=== PATIENT | male | born 1975 | race Two or more races ===

== ENCOUNTER 2023-10-29 18:08 | Emergency (ER) | payer SELFPAY ==
[~2023-10-29] VITALS: Ht 167.6 cm; Wt 62.8 kg
[~2023-10-29 18:08] MED LIST: CYCLOBENZAPRINE10 MG PO; IBUPROFEN600 MG PO; LIDODERM700 MG TOP
[2023-10-29] MEDS ORDERED: LACTATED RINGER'S 1,000 ML IV ONE ×2 (20:00→21:30)
[2023-10-29 20:10] LABS: BASOPHILS 0.3 % (0-2); EOSINOPHILS 1.2 % (0-6); HEMATOCRIT 41.9 % (35.0-50.0); HEMOGLOBIN 14.2 g/dL (12.0-18.0); LYMPHOCYTES 18.8 % (24-44); MCH 30.9 (27-36); MCHC 33.9 g/dl (30-36); MCV 91.1 fl (81-99); MONOCYTES 14.3 % (0-12); NEUTROPHILS 65.4 % (39-80); PLATELET COUNT 161 K/uL (140-440); RDW 13.8 (10.5-15.0)
[2023-10-29 20:25] LABS: BILIRUBIN, URINE POSITIVE (negative); BLOOD/HGB, URINE LARGE (Negative); KETONE, URINE NEGATIVE (Negative); LEUK ESTERASE, URINE NEGATIVE (negative); NITRITE, URINE NEGATIVE (negative); PH, URINE 5.5 (5-7)
[2023-10-29 20:28] LABS: ALBUMIN 3.6 g/dL (3.4-5.0); ALBUMIN/GLOBULIN RATIO 0.84 (1.1-2.4); ANION GAP 15.6 (7-21); BILIRUBIN, TOTAL 0.8 ng/dL (0.2-1.0); BUN/CREATININE RATIO 20.07 (6.0-28.6); CALCIUM 8.7 mg/dL (8.5-10.1); CREATININE, SERUM 2.54 mg/dL (0.70-1.30); POTASSIUM 3.6 mmol/L (3.5-5.1); PROTEIN, TOTAL 7.9 g/dL (6.4-8.2)
[2023-10-29 20:31] LABS: EPITHELIAL CELLS, URINE SQUAMOUS 1+ /lpf (0-1+); RED BLOOD CELLS, URINE >50 /hpf (0-5)
[2023-10-29 20:32] LABS: BACTERIA, URINE 2+ /hpf (negative); CASTS, URINE NONE SEEN \\lpf
[2023-10-29 20:33] LABS: CRYSTALS, URINE AMORPHOUS URATES 3+ (0-1+); REFLEX CULTURE, URINE Yes (No)
[2023-10-29 23:39] VITALS: BP 113/74
== END 2023-10-29 23:39 | disposition home or self-care (01) ==
LOC: ED 18:08
PROVIDERS: Internal Medicine
DX: R31.9 Hematuria, unspecified (principal); E86.0 Dehydration; R79.89 Other specified abnormal findings of blood chemistry; F17.200 Nicotine dependence, unspecified, uncomplicated
CPT/HCPCS: 36415; 74176; 80053; 81001; 82553; 83874; 85025; 86140; J7121